=== PATIENT | male | born 1965 | race Caucasian/White ===

== ENCOUNTER 2017-07-26 12:42 | Day surgery (SDC) | payer OTHER ==
[~2017-07-26] VITALS: Ht 177.8 cm; Wt 127.8 kg
[2017-07-26] MEDS ORDERED: MIDAZOLAM 1 MG/ML, 2ML ONE (12:47)
[2017-07-26] MEDS ORDERED: FENTANYL PF 100 MCG/2ML ONE (12:47)
[2017-07-26] MEDS ORDERED: LISI1TAB5 PO (13:23)
[2017-07-26] MEDS ORDERED: ZOLP5TAB6 PO (13:23)
[2017-07-26] MEDS ORDERED: LIDOCAINE 1%, 2ML SQ PRN (13:30)
[2017-07-26 13:44] VITALS: BP 132/98
[2017-07-26] MEDS ORDERED: PLEASE ENTER HEIGHT AND WEIGHT MC SCH (14:00)
[2017-07-26 14:08] LABS: BLOOD UREA NITROGEN 10 mg/dL (7-18)
[2017-07-26] MEDS ORDERED: LACTATED RINGERS 1,000 ML IV SCH (15:00)
[2017-07-26] MEDS ORDERED: PROPOFOL 10 MG/ML, 20ML ONE (15:18)
[2017-07-26] MEDS ORDERED: FENTANYL PF 100 MCG/2ML IV PRN (15:30)
[2017-07-26] MEDS ORDERED: MEPERIDINE/PF 25MG/0.5ML IVPush PRN (15:30)
[2017-07-26] MEDS ORDERED: LABETALOL 5MG/ML, 20ML IV PRN (15:30)
[2017-07-26] MEDS ORDERED: ACETAMINOPHEN 325 MG TABLET PO PRN (15:30)
[2017-07-26] MEDS ORDERED: OXYcodone 5 MG/5 ML ORAL.SOL UDC PO PRN (15:30)
[2017-07-26] MEDS ORDERED: ONDANSETRON 2MG/ML, 2ML IVPush PRN (15:30)
[2017-07-26] MEDS ORDERED: HYDROmorphone 1 MG/ML, 1ML IV PRN (15:30)
[2017-07-26] MEDS ORDERED: KETOROLAC 30 MG/1 ML IV PRN (15:30)
== END 2017-07-26 17:35 ==
LOC: OUT 12:42
PROVIDERS: ATTEND Internal Medicine
DX: C20 Malignant neoplasm of rectum (principal); I10 Essential (primary) hypertension
CPT/HCPCS: 36415; 45331; 45341; 80048; 88305; A4648; J2250; J2704; J3010

== ENCOUNTER 2017-09-15 07:30 | Inpatient (IN) | payer OTHER ==
[~2017-09-15] VITALS: Ht 177.8 cm; Wt 128.0 kg
[~2017-09-15 07:30] MED LIST: LISI1TAB5 PO; ZOLP5TAB6 PO
[2017-09-23] MEDS ORDERED: LACTATED RINGERS 1,000 ML IV SCH ×2 (09:08→09:37)
[2017-09-23] MEDS ORDERED: ACETAMINOPHEN 500 MG TABLET PO STA (09:11)
[2017-09-23] MEDS ORDERED: GABAPENTIN 300 MG CAPSULE PO STA (09:11)
[2017-09-23 09:19] VITALS: BP 120/82
[2017-09-23] MEDS ORDERED: HYDROcodone/APAP 7.5-325MG/15ML UDC PO PRN (09:30)
[2017-09-23] MEDS ORDERED: HYDROmorphone 1 MG/ML, 1ML IV PRN (09:30)
[2017-09-23] MEDS ORDERED: FENTANYL PF 100 MCG/2ML IV PRN (09:30)
[2017-09-23] MEDS ORDERED: METOCLOPRAMIDE 5 MG/ML, 2ML IV PRN (09:30)
[2017-09-23] MEDS ORDERED: OXYcodone 5 MG/5 ML ORAL.SOL UDC PO PRN (09:30)
[2017-09-23] MEDS ORDERED: morphine SULFATE 10 MG/ML, 1ML IV PRN ×2 (09:30→16:00)
[2017-09-23] MEDS ORDERED: PLEASE ENTER HEIGHT AND WEIGHT MC SCH ×2 (09:30→10:00)
[2017-09-23] MEDS ORDERED: KETOROLAC 30 MG/1 ML IV PRN ×2 (09:30→16:00)
[2017-09-23] MEDS ORDERED: LABETALOL 5MG/ML, 20ML IV PRN (09:30)
[2017-09-23] MEDS ORDERED: MIDAZOLAM 1 MG/ML, 2ML IV PRN (09:30)
[2017-09-23] MEDS ORDERED: ONDANSETRON 2MG/ML, 2ML IVPush PRN (09:30)
[2017-09-23] MEDS ORDERED: MEPERIDINE/PF 25MG/0.5ML IVPush PRN (09:30)
[2017-09-23] MEDS ORDERED: ACETAMINOPHEN 325 MG TABLET PO PRN ×2 (09:30→16:00)
[2017-09-23] MEDS ORDERED: ALBUTEROL SULFATE 2.5 MG/3 ML NPPB PRN (09:30)
[2017-09-23] MEDS ORDERED: GLYCOPYRROLATE 0.4 MG/2 ML, 2ML ONE (09:42)
[2017-09-23] MEDS ORDERED: LIDOCAINE-MPF 2% ,5ML ONE ×2 (09:42→13:39)
[2017-09-23] MEDS ORDERED: DEXAMETHASONE 4 MG/ML, 1ML ONE (09:42)
[2017-09-23] MEDS ORDERED: FENTANYL PF 250 MCG/5ML ONE (09:42)
[2017-09-23] MEDS ORDERED: ROCURONIUM 10 MG/ML,10ML ONE (09:42)
[2017-09-23] MEDS ORDERED: PROPOFOL 10 MG/ML, 20ML ONE (09:42)
[2017-09-23] MEDS ORDERED: MIDAZOLAM 1 MG/ML, 2ML ONE ×3 (09:42→13:39)
[2017-09-23] MEDS ORDERED: BUPIVACAINE/PF 0.5% ONE (10:00)
[2017-09-23] MEDS ORDERED: EPINEPHRINE 1 MG/ML, 1ML ONE (10:00)
[2017-09-23] MEDS ORDERED: INDOCYANINE GREEN 25 MG VIAL ONE (10:00)
[2017-09-23 10:28] LABS: ALANINE AMINOTRANSFERASE 59 U/L (12-78); ALBUMIN 4.4 g/dL (3.4-5.0); ANION GAP 9 mmol/L (5-15); CALCIUM 8.9 mg/dL (8.5-10.1); CHLORIDE 102 mmol/L (98-107); CREATININE 1.04 mg/dL (0.7-1.3)
[2017-09-23 10:30] LABS: ALKALINE PHOSPHATASE 68 U/L (45-117); BILIRUBIN,TOTAL 2.5 mg/dL (0.2-1.0); TOTAL PROTEIN 8.8 g/dL (6.4-8.2)
[2017-09-23] MEDS ORDERED: MAGNESIUM SULFATE 1 GM/2 ML ONE (10:32)
[2017-09-23] MEDS ORDERED: BUPIVACAINE/PF-EPI 0.5% 1:200K INFIL ONE (11:19)
[2017-09-23] MEDS ORDERED: FENTANYL PF 100 MCG/2ML ONE (12:44)
[2017-09-23] MEDS ORDERED: HYDROmorphone 2 MG/ML, 1ML ONE (14:23)
[2017-09-23] MEDS ORDERED: ONDANSETRON 2MG/ML, 2ML ONE (15:14)
[2017-09-23 15:51] VITALS: BP 101/66
[2017-09-23] MEDS ORDERED: ZOLPIDEM 5MG TABLET PO PRN (16:00)
[2017-09-23] MEDS ORDERED: LORazepam 1MG TABLET PO PRN (16:00)
[2017-09-23] MEDS ORDERED: DIPHENHYDRAMINE 25 MG CAPSULE PO PRN (16:00)
[2017-09-23] MEDS ORDERED: DIPHENHYDRAMINE 50 MG/ML, 1ML IV PRN (16:00)
[2017-09-23] MEDS ORDERED: ONDANSETRON 2MG/ML, 2ML IV PRN (16:00)
[2017-09-23] MEDS ORDERED: LORazepam 2 MG/ML, 1ML IV PRN (16:00)
[2017-09-23] MEDS ORDERED: ACETAMINOPHEN 650 MG SUPP PR PRN (16:00)
[2017-09-23 19:24] VITALS: BP 106/69
[2017-09-23] MEDS: KETOROLAC 30 MG/1 ML IV SCH (23:08)
[2017-09-23] MEDS: POTASSIUM CHLORIDE 20 MEQ in SODIUM CHLORIDE 0.9% 1,000 ML IV SCH (23:09)
[2017-09-23] MEDS: CEFOTETAN PMX 2GM/50ML 50 ML IVPB SCH (23:09)
[2017-09-24 00:07] VITALS: BP 93/56
[2017-09-24 03:46] VITALS: BP 92/57
[2017-09-24] MEDS: KETOROLAC 30 MG/1 ML IV SCH ×4 (04:23→22:25)
[2017-09-24 05:25] LABS: BASOPHILS % (AUTO) 0 % (0-1); EOSINOPHILS # (AUTO) 0.02 x10^3/uL (0-0.4); EOSINOPHILS % (AUTO) 0 % (1-7); LYMPHOCYTES # (AUTO) 1.16 x10^3/uL (1-3.4); LYMPHOCYTES % (AUTO) 12 % (22-44); MD NO; MEAN CORPUSCULAR HEMOGLOBIN 32.4 pg (27.5-34.5); MEAN CORPUSCULAR VOLUME 95.3 fL (81-97); MEAN PLATELET VOLUME 8.4 fL (7.4-10.4); MONOCYTES # (AUTO) 1.08 x10^3/uL (0.2-0.8); MONOCYTES % (AUTO) 11 % (2-9); NEUTROPHILS # (AUTO) 7.66 x10^3/uL (1.8-6.8); NEUTROPHILS % (AUTO) 77 % (42-75); PLATELET COUNT 201 x10^3/uL (130-400); RED BLOOD COUNT 4.43 x10^6/uL (4.38-5.82); RED CELL DISTRIBUTION WIDTH 13.8 % (9.4-14.8)
[2017-09-24 05:33] LABS: ALBUMIN 2.9 g/dL (3.4-5.0); ANION GAP 9 mmol/L (5-15); CALCIUM 8.4 mg/dL (8.5-10.1); CHLORIDE 106 mmol/L (98-107)
[2017-09-24 05:36] LABS: CREATININE 1.23 mg/dL (0.7-1.3)
[2017-09-24 08:47] VITALS: BP 106/67
[2017-09-24] MEDS: LISINOPRIL 20 MG TABLET PO SCH (08:48)
[2017-09-24] MEDS: HYDROCHLOROTHIAZIDE 12.5 MG CAPSULE PO SCH (08:48)
[2017-09-24] MEDS: ENOXAPARIN 40 MG/0.4 ML SQ SCH (08:49)
[2017-09-24] MEDS: CEFOTETAN PMX 2GM/50ML 50 ML IVPB SCH (10:44)
[2017-09-24 13:22] VITALS: BP 105/70
[2017-09-24] MEDS: POTASSIUM CHLORIDE 20 MEQ in SODIUM CHLORIDE 0.9% 1,000 ML IV SCH (16:40)
[2017-09-24] MEDS: OXYcodone/APAP 5/325MG TABLET PO PRN ×2 (17:32→22:25)
[2017-09-24 18:37] VITALS: BP 108/66
[2017-09-25 02:17] VITALS: BP 109/64
[2017-09-25 05:14] LABS: BASOPHILS # (AUTO) 0.04 x10^3/uL (0-0.1); BASOPHILS % (AUTO) 1 % (0-1); EOSINOPHILS # (AUTO) 0.13 x10^3/uL (0-0.4); EOSINOPHILS % (AUTO) 2 % (1-7); LYMPHOCYTES # (AUTO) 1.76 x10^3/uL (1-3.4); LYMPHOCYTES % (AUTO) 27 % (22-44); MD NO; MEAN CORPUSCULAR HEMOGLOBIN 32.7 pg (27.5-34.5); MEAN CORPUSCULAR HGB CONC 34.2 g/dL (33.2-36.2); MEAN CORPUSCULAR VOLUME 95.6 fL (81-97); MEAN PLATELET VOLUME 8.4 fL (7.4-10.4); MONOCYTES # (AUTO) 0.66 x10^3/uL (0.2-0.8); MONOCYTES % (AUTO) 10 % (2-9); NEUTROPHILS # (AUTO) 4.03 x10^3/uL (1.8-6.8); NEUTROPHILS % (AUTO) 61 % (42-75); PLATELET COUNT 175 x10^3/uL (130-400); RED CELL DISTRIBUTION WIDTH 14.1 % (9.4-14.8)
[2017-09-25] MEDS: KETOROLAC 30 MG/1 ML IV SCH ×2 (05:17→10:58)
[2017-09-25 05:23] LABS: ANION GAP 9 mmol/L (5-15); CALCIUM 8.2 mg/dL (8.5-10.1); CHLORIDE 103 mmol/L (98-107); CREATININE 0.87 mg/dL (0.7-1.3)
[2017-09-25 06:55] VITALS: BP 120/79
[2017-09-25] MEDS: ENOXAPARIN 40 MG/0.4 ML SQ SCH (09:00)
[2017-09-25] MEDS: HYDROCHLOROTHIAZIDE 12.5 MG CAPSULE PO SCH (09:00)
[2017-09-25] MEDS: LISINOPRIL 20 MG TABLET PO SCH (09:00)
[2017-09-25] MEDS: OXYcodone/APAP 5/325MG TABLET PO PRN (10:58)
== END 2017-09-25 11:45 | disposition home or self-care (01) | DRG 330 ==
LOC: ORIP 09-23 08:49 → 4NOR 09-23 15:25
PROVIDERS: ADMIT Colon & Rectal Surgery; ATTEND Colon & Rectal Surgery
PROC: 0DBP4ZZ Excision of Rectum, Percutaneous Endoscopic Approach (ICD-10-PCS; 2017-09-23)
PROC: 8E0W4CZ Robotic Assisted Procedure of Trunk Region, Percutaneous Endoscopic Approach (ICD-10-PCS; 2017-09-23)
PROC: 0DJD8ZZ Inspection of Lower Intestinal Tract, Via Natural or Artificial Opening Endoscopic (ICD-10-PCS; 2017-09-23)
PROC: 0DTN4ZZ Resection of Sigmoid Colon, Percutaneous Endoscopic Approach (ICD-10-PCS; principal; 2017-09-23 11:00)
DX: C19 Malignant neoplasm of rectosigmoid junction (principal); Z68.41 Body mass index [BMI] 40.0-44.9, adult; E66.01 Morbid (severe) obesity due to excess calories; L81.8 Other specified disorders of pigmentation; I10 Essential (primary) hypertension; Z83.3 Family history of diabetes mellitus; Z82.49 Family history of ischemic heart disease and other diseases of the circulatory system
CPT/HCPCS: 36415; 80048; 80053; 82040; 83735; 85025; 86850; 86900; 88309; J0171; J1100; J1170; J1650; J1885; J2250; J2405; J2704; J3010; J3475; J3480; J3490; J7030; J7120; S0074

== ENCOUNTER 2019-09-05 11:52 | Emergency (ER) | payer OTHER ==
[~2019-09-05] VITALS: Ht 177.8 cm; Wt 118.0 kg
[~2019-09-05 11:52] MED LIST changes: +LISI1TAB19 PO; -LISI1TAB5 PO
--- NOTE | 2019-09-05 12:27 | NUR ---
PT HERE WITH C/O FEELING DIZZY THIS MORNING LIKE HE WAS GOING TO PASS OUT. PT DENIES CP, SOB. NO VISION CHANGES OR CHEN APPRECIATED. PT STATES HE HAS HAD A COLD FOR 4 DAYS. DRY COUGH NOTED. PT TO CONT PULSE OX, CARD MONITOR, BP. ORTHSTATICS COMPLETED ERMD IN TO EVAL PT, ORDERS RECIEVED
[2019-09-05] MEDS ORDERED: SODIUM CHLORIDE FLUSH 10ML SYR IVF ONE (12:30)
[2019-09-05] MEDS ORDERED: SODIUM CHLORIDE 0.9% 1,000ML IVBOLUS ONE (12:30)
[2019-09-05 12:38] LABS: BASOPHILS # (AUTO) 0.01 x10^3/uL (0-0.1); BASOPHILS % (AUTO) 0 % (0-1); EOSINOPHILS # (AUTO) 0.13 x10^3/uL (0-0.4); EOSINOPHILS % (AUTO) 4 % (1-7); LYMPHOCYTES # (AUTO) 0.72 x10^3/uL (1-3.4); LYMPHOCYTES % (AUTO) 19 % (22-44); MD NO; MEAN CORPUSCULAR HEMOGLOBIN 32.4 pg (27.5-34.5); MEAN CORPUSCULAR HGB CONC 33.5 g/dL (33.2-36.2); MEAN CORPUSCULAR VOLUME 96.6 fL (81-97); MEAN PLATELET VOLUME 7.8 fL (7.4-10.4); MONOCYTES % (AUTO) 13 % (2-9); NEUTROPHILS # (AUTO) 2.37 x10^3/uL (1.8-6.8); NEUTROPHILS % (AUTO) 64 % (42-75); PLATELET COUNT 161 x10^3/uL (130-400); RED BLOOD COUNT 5.42 x10^6/uL (4.38-5.82); RED CELL DISTRIBUTION WIDTH 13.6 % (9.4-14.8)
[2019-09-05 12:54] LABS: ALANINE AMINOTRANSFERASE 44 U/L (12-78); ALBUMIN 3.8 g/dL (3.4-5.0); ANION GAP 8 mmol/L (5-15); CALCIUM 8.4 mg/dL (8.5-10.1); CHLORIDE 103 mmol/L (98-107); CREATININE 1.08 mg/dL (0.7-1.3)
[2019-09-05 12:56] LABS: ALKALINE PHOSPHATASE 63 U/L (45-117); BILIRUBIN,TOTAL 1.1 mg/dL (0.2-1.0); TOTAL PROTEIN 8.2 g/dL (6.4-8.2)
[2019-09-05 12:58] LABS: TROPONIN I < 0.015 ng/mL (0.000-0.045)
--- NOTE | 2019-09-05 13:10 | NUR ---
PIV INITIATED PT MEDICATED PER MAR, BOLUS INFUSING. REPEAT EKG COMPLTED, NAD NOTED
[2019-09-05 13:43] VITALS: BP 114/86
--- NOTE | 2019-09-05 13:49 | NUR ---
GABRIEL RN: Patient/Caregiver given discharge instructions and they have confirmed that they understand the instructions. Patient ambulatory with steady gait.
== END 2019-09-05 13:51 | disposition home or self-care (01) ==
LOC: ED 13:37
DX: R55 Syncope and collapse (principal); R42 Dizziness and giddiness; I10 Essential (primary) hypertension
CPT/HCPCS: 36415; 71045; 80053; 83605; 83735; 84484; 85025; 93005; 96360; 99284; J7030